=== PATIENT | male | born 1980 | race Caucasian/White ===

== ENCOUNTER 2024-08-31 13:52 | Emergency (ER) | payer OTHER ==
[~2024-08-31] VITALS: Ht 177.8 cm; Wt 92.1 kg
[2024-08-31] MEDS ORDERED: Ketorolac Tromethamine 30mg Vial IM ONE (16:00)
[2024-08-31] MEDS ORDERED: TRAM50 PO (17:16)
== END 2024-08-31 18:00 | disposition home or self-care (01) ==
LOC: ER 13:52
DX: M25.512 Pain in left shoulder (principal); Z59.02 Unsheltered homelessness; Z88.5 Allergy status to narcotic agent
CPT/HCPCS: 73030; 96372; 99283-25; J1885

== ENCOUNTER 2024-09-24 23:53 | Emergency (ER) | payer OTHER ==
[~2024-09-24] VITALS: Ht 177.8 cm; Wt 92.1 kg
[~2024-09-24 23:53] MED LIST: TRAM50 PO
[2024-09-25] MEDS ORDERED: Diclofenac Sodium 100 GM TUBE TOP ONE (02:40)
[2024-09-25] MEDS ORDERED: Voltaren100 GM TOP (02:52)
== END 2024-09-25 00:35 | disposition home or self-care (01) ==
LOC: ER 23:53
DX: G56.21 Lesion of ulnar nerve, right upper limb (principal); K21.9 Gastro-esophageal reflux disease without esophagitis; Z88.5 Allergy status to narcotic agent
CPT/HCPCS: 29105; 73070; 99283-25; A9270

== ENCOUNTER 2024-09-28 20:32 | Emergency (ER) | payer OTHER ==
[~2024-09-28] VITALS: Ht 167.6 cm; Wt 81.7 kg
[~2024-09-28 20:32] MED LIST changes: +Voltaren100 GM TOP
[2024-09-28] MEDS ORDERED: Ketorolac Tromethamine 30mg Vial IM ONE (22:00)
== END 2024-09-28 23:04 | disposition home or self-care (01) ==
LOC: ER 20:32
DX: G56.21 Lesion of ulnar nerve, right upper limb (principal); Z88.5 Allergy status to narcotic agent
CPT/HCPCS: 96372; 99282-25; J1885

== ENCOUNTER 2025-02-08 23:05 | Emergency (ER) | payer OTHER ==
[~2025-02-08] VITALS: Ht 177.8 cm; Wt 83.9 kg
== END 2025-02-09 01:26 | disposition home or self-care (01) ==
LOC: ER 23:05
DX: S00.33XA Contusion of nose, initial encounter (principal); Z88.5 Allergy status to narcotic agent; Z79.899 Other long term (current) drug therapy; Z59.89 Other problems related to housing and economic circumstances; Y04.8XXA Assault by other bodily force, initial encounter
CPT/HCPCS: 70486; 99284-25

== ENCOUNTER 2025-04-09 14:55 | Emergency (ER) | payer OTHER ==
[~2025-04-09] VITALS: Ht 177.8 cm; Wt 96.6 kg
[2025-04-09] MEDS ORDERED: Ketorolac Tromethamine 30mg Vial IM ONE (17:30)
== END 2025-04-09 17:55 | disposition home or self-care (01) ==
LOC: ER 14:55
DX: M25.531 Pain in right wrist (principal); M79.631 Pain in right forearm; X50.9XXA Other and unspecified overexertion or strenuous movements or postures, initial encounter
CPT/HCPCS: 73110; 96372; 99283-25; J1885